=== PATIENT | male | born 1980 | race Caucasian/White ===

== ENCOUNTER → 2018-01-02 | Outpatient (CLI) | payer OTHER ==
[~2018-01-02] MED LIST: OXYC1TAB3 PO; PROM25TA PO
== END | disposition home or self-care (01) ==
LOC: C.LAB 08:12
PROVIDERS: ATTEND Physician Assistant
DX: Z31.9 Encounter for procreative management, unspecified (principal)

== ENCOUNTER 2022-06-27 17:07 | Inpatient (IN) ==
--- NOTE | 2022-06-27 17:34 | ED Triage Note ---
Date of Service June 27, 2022 History of Present Illness This patient was briefly evaluated while in triage. An abbreviated physical exam was performed. This patient is a 41-year-old Male with left flank pain. It started around 6pm in the evening yesterday. Vague pain initially. Came here around 11pm. Had a CT scan. 7mm stone. Physical Exam GENERAL: 41 year old female. In no acute distress. SKIN: No lesions or rashes. HEART: Regular rate and rhythm. LUNGS: Clear to auscultation. ABDOMEN: Bowel sounds normoactive. NEURO: Alert and oriented. No deficits. MUSCULOSKELETAL: No deformities to inspection of the extremities. PSYCH: Patient is pleasant and answers all questions appropriately. Initial orders for labs and / or imaging were placed and patient was placed in the waiting area until a bed is available. Please see further documentation for the full ED course.
[2022-06-27] MEDS ORDERED: KETOROLAC TROMETHAMINE 15 MG/ML VIAL IV STA (17:35)
[2022-06-27] MEDS ORDERED: ONDANSETRON INJ 2 MG/ML 2 ML VIAL IV STA (17:35)
[2022-06-27] MEDS ORDERED: HYDROmorphone INJ 1 MG/ML SYRINGE IV STA (18:11)
[2022-06-27] MEDS ORDERED: SODIUM CHLORIDE 0.9% 1000ML 1,000 ML IV SCH (18:15)
--- NOTE | 2022-06-27 18:17 | Emergency Department Note ---
History of Present Illness General Chief complaint: Kidney Stone Stated complaint: 7MM KIDNEY STONE, SEVERE PAIN Time Seen by Provider: 06/27/22 17:55 History of Present Illness Maximum Pain Intensity: 8 This is a 41-year-old male that presents to the emergency department via private vehicle accompanied by with complaints of "left flank pain, recent kidney stone diagnosis". Pain started around 6pm in the evening yesterday. Vague pain initially. Came here around 11pm last night and underwent CT imaging of the abd/pelvis. Obstructing ureteral calculus noted on the left. Patient notes this was 7 mm in size. He went home and has had vomiting/dry heaves and cannot control the pain with the prescribed pain medication oxycodone. No fevers or dysuria. Home Medications Medication Instructions Recorded Confirmed Type epinephrine 0.3 mg/0.3 mL 0.3 mg IM UD PRN Allergic Reaction 06/27/22 06/27/22 History injection, auto-injector ondansetron 4 mg disintegrating 4 mg PO Q6H PRN nausea and 06/27/22 06/27/22 Rx tablet vomiting #12 tabs oxycodone 5 mg tablet 5 mg PO Q4H PRN pain #12 tabs 06/27/22 06/27/22 Rx tamsulosin 0.4 mg capsule (Flomax) 0.4 mg PO DAILY #14 caps 06/27/22 06/27/22 Rx Allergies Allergy/AdvReac Type Severity Reaction Status Date / Time bee venom protein (honey bee) Allergy Severe Swelling Verified 06/27/22 19:24 of Lip/Tongue/Throat Past Med/Surg History Medical History No pertinent past medical history Family History (Updated 10/05/19 @ 10:29 by Payton Dunlap RN) Family/Other Hypertension Social History Smoking Status: Never smoker Hx Alcohol Use: Yes Hx Substance Use: Yes Preferred Language: Kazakh Communication Ability: Effective Airline Operations Agent Required: No Beliefs That Will Affect Care: None marital status: Current Living Situation: Spouse current occupational status: employed Other Information That Helps Us Care for You: No Feels Safe at Home: Yes Safety Concerns: Feels Safe At This Time Assistive Devices: Contacts Review of Systems A total of 10 systems reviewed and were otherwise negative Physical Exam Vital Signs Vital Signs - 24 hr 06/27/22 17:32 06/27/22 18:28 06/27/22 19:28 Temperature 36.6 C Temperature Source Temporal Artery Scan Pulse Rate 75 Pulse Rate [Right Finger] 84 83 Respiratory Rate 18 16 16 Blood Pressure 149/87 H Blood Pressure [Right Arm] 139/85 125/71 Blood Pressure Mean 107 Blood Pressure Mean [Right Arm] 103 89 Pulse Oximetry 98 98 96 Oxygen Delivery Method Room Air Room Air Room Air Sepsis Recent Fever Within 48 Hours No Sepsis New/Unexplained Change in Mental Status No Sepsis Action Taken by Nursing No Action Required VITAL SIGNS - Vital signs and nursing notes were reviewed. Stable and afebrile. GENERAL -41-year-old male appearing his stated age who is in no acute distress but appears to be in pain and is holding his left flank region with his hands. Communicates well with provider and answers questions appropriately. SKIN - Without rashes. No meningeal or petechial rash. HEAD - NC/AT. EYES - Sclera anicteric. LUNGS - Chest wall symmetric without accessory muscle use, intercostals retractions, or central cyanosis. Normal vesicular breath sounds CTA B/L. No wheezes, rales, or rhonchi appreciated. CARDIAC - RRR with S1/S2. No murmur, rubs, or gallops appreciated. ABDOMEN - Abdominal contour normal without pulsations or visible masses. BS normoactive all four quadrants. No tenderness, palpable masses, hepatosplenomegaly, or ascites noted. PSYCH - A&Ox3 and cooperates fully with examiner. Pt is very pleasant and interacts well with examiner. Course Administered Medications Multivitamins 10 ml/ Thiamine HCl 100 mg/ Folic Acid 1 mg/Sodium Chloride 1,011.2 mls @ 200 mls/hr IV .Q5H4M ONE Stop: 06/28/22 01:18 Last Admin: 06/27/22 21:35 Dose: 200 mls/hr Documented By: SHELIA Morphine Sulfate (Morphine Sulfate 4 Mg/Ml 1 Ml Carp\\Vial) 4 mg IV Q4H PRN PRN Reason: Pain Stop: 07/11/22 19:28 Last Admin: 06/27/22 21:40 Dose: 4 mg Documented By: SHELIA Discontinued Medications Hydromorphone HCl (Hydromorphone Inj 1 Mg/Ml Syringe) 1 mg IV NOW STA Stop: 06/27/22 18:12 Last Admin: 06/27/22 18:28 Dose: 1 mg Documented By: ASW Sodium Chloride (Nss 1000ml) 1,000 mls @ 999 mls/hr IV .Q1H1M ISABEL Stop: 06/27/22 19:15 Last Infusion: 06/27/22 19:23 Dose: 0 mls/hr Documented By: Admin: 06/27/22 18:28 Dose: 999 mls/hr Documented By: ASW Sodium Chloride (Nss 1000ml) 1,000 mls @ 100 mls/hr IV .Q10H ONE Stop: 06/28/22 05:28 Last Admin: 06/27/22 21:31 Dose: Not Given Documented By: SHELIA Ketorolac Tromethamine (Ketorolac Tromethamine 15 Mg/Ml Vial) 15 mg IV NOW STA Stop: 06/27/22 17:36 Last Admin: 06/27/22 18:18 Dose: 15 mg Documented By: EVELINEW Ondansetron HCl (Ondansetron Inj 2 Mg/Ml 2 Ml Vial) 4 mg IV NOW STA Stop: 06/27/22 17:36 Last Admin: 06/27/22 18:18 Dose: 4 mg Documented By: ALECIA Medical Decision Making Laboratory Data Result diagrams: 06/27/22 18:15 06/27/22 18:15 Lab Results 06/27/22 06/27/22 06/27/22 Range/Units 18:15 18:15 18:25 WBC 15.28 H (4.8-10.8) K/ul RBC 4.90 (4.63-6.08) M/uL Hgb 15.0 (14.0-18.0) g/dl Hct 42.2 (40.1-51.0) % MCV 86.1 (80.0-100.0) fL MCH 30.6 (25.0-34.0) pg MCHC 35.5 (32.0-36.0) g/dL RDW Std Deviation 39.7 (36.4-46.3) fL RDW Coeff of Mikael 12.6 (11.5-14.5) % Plt Count 215 (130-400) K/uL MPV 11.6 (9.4-12.4) fL Immature Gran % (Auto) 0.5 % Neut % (Auto) 83.8 % Lymph % (Auto) 8.2 % [place] % (Auto) 6.5 % Eos % (Auto) 0.7 % Baso % (Auto) 0.3 % Neut # (Auto) 12.79 H (1.4-6.5) K/uL Lymph # (Auto) 1.26 (1.2-3.4) K/uL [place] # (Auto) 1.00 H (0.24-0.82) K/uL Eos # (Auto) 0.11 (0-0.50) K/uL Baso # (Auto) 0.05 (0-0.2) K/uL Immature Gran # (Auto) 0.07 H (0.00-0.02) K/uL Sodium 134 L (136-145) mmol/L Potassium 4.3 (3.5-5.1) mmol/L Chloride 104 (98-107) mmol/L Carbon Dioxide 20 L (21-32) mmol/L Anion Gap 10 (3-11) BUN 11 (6-23) mg/dl Creatinine 1.01 (0.6-1.4) mg/dl Est Cr Clr Drug Dosing 123.1 ml/min Est GFR ( Amer) 107.3 ml/min Est GFR (Non-Af Amer) 92.6 ml/min BUN/Creatinine Ratio 10.9 (10-20) Glucose 109 H (70-99(Fasting)) mg/dl Calcium 9.5 (8.5-10.1) mg/dl Total Bilirubin 0.7 (0.2-1.0) mg/dl AST 51 H (13-39) U/L ALT 46 (7-52) U/L Alkaline Phosphatase 83 (34-104) U/L Total Protein 7.5 (6.0-8.3) gm/dl Albumin 4.2 (3.4-5.0) gm/dl Globulin 3.3 (2.5-4.0) gm/dl Albumin/Globulin Ratio 1.3 (0.9-2) Urine Color Yellow Urine Appearance Clear (Clear) Urine pH 6.0 (4.5-7.5) Ur Specific [place] 1.009 (1.000-1.030) Urine Protein Trace H (Negative) Urine Glucose (UA) Negative (Negative) Urine Ketones Negative (Negative) Urine Blood 3+ H (Negative) Urine Nitrite Negative (Negative) Urine Bilirubin Negative (Negative) Urine Urobilinogen Negative (Negative) Ur Leukocyte Esterase Trace H (Negative) Urine WBC (Auto) 1-5 (0-5) /hpf Urine RBC (Auto) >30 H (0-4) /hpf U Hyaline Cast (Auto) 1-5 (0-5) /lpf U Epithel Cells (Auto) 0-5 (0-5) /lpf Urine Bacteria (Auto) Negative (Negative) SARS-CoV-2, RNA, NAAT (NEGATIVE) 06/27/22 Range/Units 19:01 WBC (4.8-10.8) K/ul RBC (4.63-6.08) M/uL Hgb (14.0-18.0) g/dl Hct (40.1-51.0) % MCV (80.0-100.0) fL MCH (25.0-34.0) pg MCHC (32.0-36.0) g/dL RDW Std Deviation (36.4-46.3) fL RDW Coeff of Mikael (11.5-14.5) % Plt Count (130-400) K/uL MPV (9.4-12.4) fL Immature Gran % (Auto) % Neut % (Auto) % Lymph % (Auto) % [place] % (Auto) % Eos % (Auto) % Baso % (Auto) % Neut # (Auto) (1.4-6.5) K/uL Lymph # (Auto) (1.2-3.4) K/uL [place] # (Auto) (0.24-0.82) K/uL Eos # (Auto) (0-0.50) K/uL Baso # (Auto) (0-0.2) K/uL Immature Gran # (Auto) (0.00-0.02) K/uL Sodium (136-145) mmol/L Potassium (3.5-5.1) mmol/L Chloride (98-107) mmol/L Carbon Dioxide (21-32) mmol/L Anion Gap (3-11) BUN (6-23) mg/dl Creatinine (0.6-1.4) mg/dl Est Cr Clr Drug Dosing ml/min Est GFR ( Amer) ml/min Est GFR (Non-Af Amer) ml/min BUN/Creatinine Ratio (10-20) Glucose (70-99(Fasting)) mg/dl Calcium (8.5-10.1) mg/dl Total Bilirubin (0.2-1.0) mg/dl AST (13-39) U/L ALT (7-52) U/L Alkaline Phosphatase (34-104) U/L Total Protein (6.0-8.3) gm/dl Albumin (3.4-5.0) gm/dl Globulin (2.5-4.0) gm/dl Albumin/Globulin Ratio (0.9-2) Urine Color Urine Appearance (Clear) Urine pH (4.5-7.5) Ur Specific [place] (1.000-1.030) Urine Protein (Negative) Urine Glucose (UA) (Negative) Urine Ketones (Negative) Urine Blood (Negative) Urine Nitrite (Negative) Urine Bilirubin (Negative) Urine Urobilinogen (Negative) Ur Leukocyte Esterase (Negative) Urine WBC (Auto) (0-5) /hpf Urine RBC (Auto) (0-4) /hpf U Hyaline Cast (Auto) (0-5) /lpf U Epithel Cells (Auto) (0-5) /lpf Urine Bacteria (Auto) (Negative) SARS-CoV-2, RNA, NAAT NEGATIVE (NEGATIVE) MDM Narrative Patient was seen and evaluated as above in room C05. Review was performed of nursing notes and vital signs. I did review pertinent previous visits and patient history. After obtaining a thorough history and physical examination the above work up was performed. Patient presents to us today for evaluation of ongoing left flank pain with known ureteral calculus that is obstructing and was diagnosed yesterday/overnight here in the ED. CT imagin mm proximal left ureteral calculus results in mild left hydronephrosis. Options of care were discussed with the patient. Patient presents during a period of high volume and acuity. IV access was established. Labs were drawn. He was medicated with IV Toradol, IV Zofran, IV fluids, IV Dilaudid. At this point with the patient having ongoing symptoms despite appropriate prescription pain medication in the outpatient setting, I do believe that further evaluation and management in inpatient setting is warranted. I discussed the case with urology as well as the hospitalist service. Please refer to further documentation regarding his stay. Labs reveal leukocytosis 15.28 which has increased since previous draw. No anemia. No emergent metabolic disturbance. No evidence of kidney failure. AST mildly elevated but similar to previous. Urinalysis does not suggest infection. COVID test negative. 1851: Spoke with Dr. Britt of urology. Patient will be made n.p.o. after midnight for potential surgical intervention tomorrow if the need would arise. 1920: I spoke with Dr. Gallo with the [facility] hospitalist service. Patient will be admitted for further evaluation and management. GCS: 15 In the evaluation and treatment of this patient the following differential diagnoses were entertained: UTI, pyelonephritis, hydronephrosis, bowel obstruction, ИВАН, among others. Impression & Plan Calculus of left ureter, Hydronephrosis, Acute left flank pain Discharge Plan Visit Data Chief Complaint: Kidney Stone Stated Complaint: 7MM KIDNEY STONE, SEVERE PAIN ED Provider: Andrea Rincon ED Midlevel Provider: Иван Franco Discharge Problem: Calculus of left ureter, Hydronephrosis, Acute left flank pain Patient Disposition: Admitted As Inpatient Condition: Good Discharge Instructions Interventions: ED Discharge Assessment Last Done: 06/27/22 20:48
[2022-06-27 18:31] LABS: Basophils # (auto) 0.05 K/uL (0-0.2); Basophils % (auto) 0.3 %; Eosinophils # (auto) 0.11 K/uL (0-0.50); Eosinophils % (auto) 0.7 %; Hematocrit (blood only) 42.2 % (40.1-51.0); Immature Granulocytes # (auto) 0.07 K/uL (0.00-0.02); Immature Granulocytes % (auto) 0.5 %; Lymphocytes # (auto) 1.26 K/uL (1.2-3.4); Lymphocytes % (auto) 8.2 %; Mean Corpuscular Hemoglobin 30.6 pg (25.0-34.0); Mean Corpuscular Hgb Conc 35.5 g/dL (32.0-36.0); Mean Corpuscular Volume 86.1 fL (80.0-100.0); Mean Platelet Volume 11.6 fL (9.4-12.4); Monocytes % (auto) 6.5 %; Neutrophils # (auto) 12.79 K/uL (1.4-6.5); Neutrophils % (auto) 83.8 %; Platelet Count 215 K/uL (130-400); RDW Coefficient of Variation 12.6 % (11.5-14.5); RDW Standard Deviation 39.7 fL (36.4-46.3); White Blood Count 15.28 K/ul (4.8-10.8)
[2022-06-27 18:51] LABS: Albumin Globulin Ratio 1.3 (0.9-2); Albumin Level 4.2 gm/dl (3.4-5.0); BUN Creatinine Ratio 10.9 (10-20); Bilirubin,Total 0.7 mg/dl (0.2-1.0); Calcium 9.5 mg/dl (8.5-10.1); Creatinine Clr Calc Pharmacy 123.1 ml/min; Est GFR (African American) 107.3 ml/min; Est GFR (Non-African American) 92.6 ml/min; Globulin 3.3 gm/dl (2.5-4.0); Potassium 4.3 mmol/L (3.5-5.1); Total Protein 7.5 gm/dl (6.0-8.3)
[2022-06-27] MEDS ORDERED: PROMETHAZINE HCL 12.5 MG in SODIUM CHLORIDE 0.9% 50 ML IV PRN (19:29)
[2022-06-27] MEDS ORDERED: ACETAMINOPHEN 500 MG TAB PO PRN (19:29)
[2022-06-27] MEDS ORDERED: SODIUM CHLORIDE 0.9% 1000ML 1,000 ML IV ONE (19:29)
--- NOTE | 2022-06-27 19:59 | History & Physical Report ---
Date of Service June 27, 2022 Assessment & Plan (1) Obstructive uropathy: Plan: Secondary to recurrent urolithiasis No sepsis for now Possible alcohol abuse Possible alcoholic hepatitis, good prognosis Madrey's DF score given normal total bilirubin levels. Occasional tobacco abuse GMF Analgesia, IVF Flomax Strain urine Urology consult Re: Obstructive uropathy (ER provider already in touch with Dr. Britt who recommends N.p.o. after midnight in anticipation of procedural intervention if stone does not pass spontaneously.) DT precautions, initiate AWSS protocol if with signs of alcohol withdrawal DVT prophylaxis per Lovenox subcu Full code Text document was generated using [employer] voice recognition software. It may contain grammatical or spelling errors. Kindly contact undersigned for clarification of any documentation item in question. History of Present Illness Chief Complaint: Kidney stone pain Primary Care Provider: [place] Hidalgo MD History obtained from patient and records. Medical history significant for urolithiasis, intermittent tobacco abuse. Last night, patient experienced achy left-sided flank pain reminiscent of kidney stone pain. No fever, no chills. Patient had nausea and emesis symptoms from pain. No gross hematuria. Patient seen at the ER early a.m. today. CT abdomen pelvis showed 6 mm proximal left ureteral calculus results in mild left hydronephrosis. Patient discharged home. Oxy IR and Flomax prescriptions. Instructed to follow-up with urologist outpatient. Intractable discomfort at home. Patient returned to ER. 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 Allergies Allergy/AdvReac Type Severity Reaction Status Date / Time bee venom protein (honey bee) Allergy Severe Swelling Verified 06/27/22 19:24 of Lip/Tongue/Throat Home Medications Medication Instructions Recorded Confirmed Type epinephrine 0.3 mg/0.3 mL 0.3 mg IM UD PRN Allergic Reaction 06/27/22 06/27/22 History injection, auto-injector ondansetron 4 mg disintegrating 4 mg PO Q6H PRN nausea and 06/27/22 06/27/22 Rx tablet vomiting #12 tabs oxycodone 5 mg tablet 5 mg PO Q4H PRN pain #12 tabs 06/27/22 06/27/22 Rx tamsulosin 0.4 mg capsule (Flomax) 0.4 mg PO DAILY #14 caps 06/27/22 06/27/22 Rx Past Med/Surg History Medical History No pertinent past medical history Family History (Updated 10/05/19 @ 10:29 by Payton Dunlap RN) Family/Other Hypertension Social History Smoking Status: Never smoker Hx Alcohol Use: Yes Preferred Language: Swedish marital status: current occupational status: employed Feels Safe at Home: Yes Review of Systems Review of Systems: As per HPI, all other systems reviewed and negative Physical Exam Physical Exam: GENERAL: Comfortable, pleasant, obese, no respiratory distress SKIN: Normal color, warm HEENT: [place] palpebral conjunctivae, no ptosis, dry buccal mucosa NECK : Supple, no tenderness CHEST : CTA, no tenderness HEART : RRR, no obvious murmurs ABDOMEN: Some distention, nontender BACK : Minimal left flank tenderness EXTREMITIES : No LE swelling/tenderness, no other conspicuous deformities noted NEUROLOGIC : Coherent, no facial asymmetry, no other gross focality Results & Data Results & Data ([facility]) Vital Signs (Past 12 Hours) Vital Signs Temp Pulse Pulse Resp BP BP Pulse Ox 06/27/22 19:28 83 16 125/71 96 06/27/22 18:28 84 16 139/85 98 06/27/22 17:32 36.6 C 75 18 149/87 H 98 O2 Del Method 06/27/22 19:28 Room Air 06/27/22 18:28 Room Air 06/27/22 17:32 Room Air Laboratory Results Laboratory Results WBC 15.28 K/ul (4.8-10.8) H 06/27/22 18:15 RBC 4.90 M/uL (4.63-6.08) 06/27/22 18:15 Hgb 15.0 g/dl (14.0-18.0) 06/27/22 18:15 Hct 42.2 % (40.1-51.0) 06/27/22 18:15 MCV 86.1 fL (80.0-100.0) 06/27/22 18:15 MCH 30.6 pg (25.0-34.0) 06/27/22 18:15 MCHC 35.5 g/dL (32.0-36.0) 06/27/22 18:15 RDW Std Deviation 39.7 fL (36.4-46.3) 06/27/22 18:15 RDW Coeff of Mikael 12.6 % (11.5-14.5) 06/27/22 18:15 Plt Count 215 K/uL (130-400) 06/27/22 18:15 MPV 11.6 fL (9.4-12.4) 06/27/22 18:15 Immature Gran % (Auto) 0.5 % 06/27/22 18:15 Neut % (Auto) 83.8 % 06/27/22 18:15 Lymph % (Auto) 8.2 % 06/27/22 18:15 [place] % (Auto) 6.5 % 06/27/22 18:15 Eos % (Auto) 0.7 % 06/27/22 18:15 Baso % (Auto) 0.3 % 06/27/22 18:15 Neut # (Auto) 12.79 K/uL (1.4-6.5) H 06/27/22 18:15 Lymph # (Auto) 1.26 K/uL (1.2-3.4) 06/27/22 18:15 [place] # (Auto) 1.00 K/uL (0.24-0.82) H 06/27/22 18:15 Eos # (Auto) 0.11 K/uL (0-0.50) 06/27/22 18:15 Baso # (Auto) 0.05 K/uL (0-0.2) 06/27/22 18:15 Immature Gran # (Auto) 0.07 K/uL (0.00-0.02) H 06/27/22 18:15 Sodium 134 mmol/L (136-145) L 06/27/22 18:15 Potassium 4.3 mmol/L (3.5-5.1) 06/27/22 18:15 Chloride 104 mmol/L (98-107) 06/27/22 18:15 Carbon Dioxide 20 mmol/L (21-32) L 06/27/22 18:15 Anion Gap 10 (3-11) 06/27/22 18:15 BUN 11 mg/dl (6-23) 06/27/22 18:15 Creatinine 1.01 mg/dl (0.6-1.4) 06/27/22 18:15 Est Cr Clr Drug Dosing 123.1 ml/min 06/27/22 18:15 Est GFR ( Amer) 107.3 ml/min 06/27/22 18:15 Est GFR (Non-Af Amer) 92.6 ml/min 06/27/22 18:15 BUN/Creatinine Ratio 10.9 (10-20) 06/27/22 18:15 Glucose 109 mg/dl (70-99(Fasting)) H 06/27/22 18:15 Calcium 9.5 mg/dl (8.5-10.1) 06/27/22 18:15 Total Bilirubin 0.7 mg/dl (0.2-1.0) 06/27/22 18:15 AST 51 U/L (13-39) H 06/27/22 18:15 ALT 46 U/L (7-52) 06/27/22 18:15 Alkaline Phosphatase 83 U/L (34-104) 06/27/22 18:15 Total Protein 7.5 gm/dl (6.0-8.3) 06/27/22 18:15 Albumin 4.2 gm/dl (3.4-5.0) 06/27/22 18:15 Globulin 3.3 gm/dl (2.5-4.0) 06/27/22 18:15 Albumin/Globulin Ratio 1.3 (0.9-2) 06/27/22 18:15 SARS-CoV-2, RNA, NAAT NEGATIVE (NEGATIVE) 06/27/22 19:01
[2022-06-27] MEDS ORDERED: MULTI-VITAMIN INFUSION 10 ML, THIAMINE HCL 100 MG, FOLIC ACID 1 MG in SODIUM CHLORIDE 0... IV ONE (20:15)
[2022-06-27 20:48] LABS: Appearance Urine Clear (Clear); Bacteria Urine Automated Negative (Negative); Bilirubin Urine Negative (Negative); Blood Urine 3+ (Negative); Color Urine Yellow; Epithelial Cell Urine Auto 0-5 /lpf (0-5); Glucose Urine UA Negative (Negative); Ketones Urine Negative (Negative); Leukocyte Esterase Urine Trace (Negative); Nitrite Urine Negative (Negative); Protein Urine Trace (Negative); RBC Urine Automated >30 /hpf (0-4); Specific Gravity Urine 1.009 (1.000-1.030); Urobilinogen Urine Negative (Negative)
[2022-06-27] MEDS ORDERED: LORazepam 0.5 MG in SYRINGE 0 ML IV PRN (21:30)
[2022-06-27] MEDS: MoRPHine SULFATE 4 MG/ML 1 ML CARP\\VIAL IV PRN (21:40)
[2022-06-28] MEDS: MoRPHine SULFATE 4 MG/ML 1 ML CARP\\VIAL IV PRN (02:46)
[2022-06-28] MEDS: SODIUM CHLORIDE 0.9% 1000ML 1,000 ML IV SCH ×2 (02:51→15:06)
[2022-06-28] MEDS: oxyCODONE HCL IR 5 MG TAB (IMMEDIATE RELEASE) PO PRN ×2 (04:57→09:20)
[2022-06-28] MEDS: HYDROmorphone INJ 1 MG/ML SYRINGE IV PRN ×2 (07:02→14:57)
--- NOTE | 2022-06-28 07:15 | Urology Consultation ---
Date of Consultation June 28, 2022 Assessment & Plan (1) Calculus of left ureter: Plan 41-year-old male with 6 mm left proximal ureteral calculus and intractable pain and nausea. Discussed options with patient. We will plan to go to the OR for cystoscopy, left retrograde pyelogram and left ureteral stent placement. Patient understands that we cannot treat stone at this time he will need a second procedure. Please keep patient NPO. Anticipate procedure will be this afternoon. History of Present Illness Reason for Consultation: 6 mm left proximal ureteral calculus Attending Physician: Katie Mcintosh MD History of Present Illness 41-year-old male with a 6 mm left proximal ureteral calculus who is presenting to the emergency department twice in the past [address] scan which shows above-noted stone with mild hydronephrosis. Patient has been afebrile with stable vitals. White count 15.2, creatinine 1.01, urinalysis had microscopic hematuria and trace leukocyte Esterase. Due to intractable pain and nausea, patient was admitted and would prefer stent. Allergies Allergy/AdvReac Type Severity Reaction Status Date / Time bee venom protein (honey bee) Allergy Severe Swelling Verified 06/27/22 19:24 of Lip/Tongue/Throat Home Medications Medication Instructions Recorded Confirmed Type epinephrine 0.3 mg/0.3 mL 0.3 mg IM UD PRN Allergic Reaction 06/27/22 06/27/22 History injection, auto-injector ondansetron 4 mg disintegrating 4 mg PO Q6H PRN nausea and 06/27/22 06/27/22 Rx tablet vomiting #12 tabs oxycodone 5 mg tablet 5 mg PO Q4H PRN pain #12 tabs 06/27/22 06/27/22 Rx tamsulosin 0.4 mg capsule (Flomax) 0.4 mg PO DAILY #14 caps 06/27/22 06/27/22 Rx Patient History Medical History No pertinent past medical history Family History (Updated 10/05/19 @ 10:29 by Payton Dunlap RN) Family/Other Hypertension Social History Smoking Status: Never smoker Hx Alcohol Use: Yes Hx Substance Use: Yes Preferred Language: Citizen [place] Communication Ability: 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 Beliefs That Will Affect Care: None marital status: Current Living Situation: Spouse current occupational status: employed Other Information That Helps Us Care for You: No Feels Safe at Home: Yes Safety Concerns: Feels Safe At This Time Assistive Devices: Contacts Review of Systems Review of Systems: 14 point review of systems negative outside of what is listed above in HPI Physical Exam Physical Exam: General: Alert and oriented, no acute distress HEENT: Normocephalic, mucous membranes moist Pulmonary: Nonlabored respirations Abdomen: Nondistended Extremities: Moves all 4 spontaneously Neuro: No gross deficits Skin: Warm, dry, no rashes noted Results & Data ([facility]) Vital Signs (Past 12 Hours) Vital Signs Temp Pulse Pulse Resp BP BP Pulse Ox 06/27/22 21:20 36.6 C 75 18 128/66 96 06/27/22 20:48 73 16 136/73 94 06/27/22 19:28 83 16 125/71 96 O2 Del Method 06/27/22 21:20 Room Air 06/27/22 20:48 Room Air 06/27/22 19:28 Room Air PG Care Time/CCT Total # of Minutes Spent Total Time Spent with Patient: Total time spent is greater than 50% in coordination of care (as documented) at patient's floor/unit and/or counseling patient: Coding Level of Care Code 85177 Inpt Consult Level 4 Diagnoses Calculus of left ureter N20.1
[2022-06-28 07:47] LABS: Basophils # (auto) 0.05 K/uL (0-0.2); Basophils % (auto) 0.5 %; Eosinophils # (auto) 0.34 K/uL (0-0.50); Eosinophils % (auto) 3.1 %; Hematocrit (blood only) 39.2 % (40.1-51.0); Hemoglobin 13.3 g/dl (14.0-18.0); Immature Granulocytes # (auto) 0.03 K/uL (0.00-0.02); Immature Granulocytes % (auto) 0.3 %; Lymphocytes # (auto) 2.65 K/uL (1.2-3.4); Lymphocytes % (auto) 24.1 %; Mean Corpuscular Hemoglobin 30.4 pg (25.0-34.0); Mean Corpuscular Hgb Conc 33.9 g/dL (32.0-36.0); Mean Corpuscular Volume 89.5 fL (80.0-100.0); Mean Platelet Volume 11.7 fL (9.4-12.4); Monocytes # (auto) 1.11 K/uL (0.24-0.82); Monocytes % (auto) 10.1 %; Neutrophils # (auto) 6.81 K/uL (1.4-6.5); Neutrophils % (auto) 61.9 %; Platelet Count 196 K/uL (130-400); RDW Coefficient of Variation 12.9 % (11.5-14.5); RDW Standard Deviation 42.3 fL (36.4-46.3); Red Blood Count 4.38 M/uL (4.63-6.08); White Blood Count 10.99 K/ul (4.8-10.8)
[2022-06-28 07:56] LABS: Prothrombin Time 10.6 Seconds (9.0-12.0)
[2022-06-28 08:09] LABS: Albumin Globulin Ratio 1.4 (0.9-2); Albumin Level 3.6 gm/dl (3.4-5.0); BUN Creatinine Ratio 10.2 (10-20); Bilirubin,Total 0.6 mg/dl (0.2-1.0); Calcium 8.3 mg/dl (8.5-10.1); Creatinine Clr Calc Pharmacy 127.5 ml/min; Est GFR (African American) 111.3 ml/min; Est GFR (Non-African American) 96.1 ml/min; Globulin 2.6 gm/dl (2.5-4.0); Potassium 3.9 mmol/L (3.5-5.1); Total Protein 6.2 gm/dl (6.0-8.3)
[2022-06-28] MEDS ORDERED: MULTIVITAMIN TAB PO SCH (09:00)
[2022-06-28] MEDS ORDERED: TAMSULOSIN HCL 0.4 MG CAP PO SCH (09:00)
[2022-06-28] MEDS ORDERED: FOLIC ACID 1 MG TAB PO SCH (09:00)
[2022-06-28] MEDS ORDERED: THIAMINE HCL 100 MG TAB PO SCH (09:00)
[2022-06-28] MEDS ORDERED: ENOXAPARIN INJ 40 MG/0.4 ML SYR SQ SCH (09:00)
[2022-06-28] MEDS ORDERED: KETOROLAC TROMETHAMINE 15 MG/ML VIAL IV ONE (10:11)
--- NOTE | 2022-06-28 11:30 | Hospitalist Progress Note ---
Date of Service June 28, 2022 Assessment & Plan (1) Calculus of left ureter: Plan: Present on admission with worsening left-sided flank pain associated with nausea CT abd/pelvis showed 6 mm proximal left ureteral calculus results in mild left hydronephrosis. Continue pain control Urology on board Plan for for cystoscopy, left retrograde pyelogram and left ureteral stent placement. Keep NPO for now DVT px SCDs Code status full code Admission and Anticipated Discharge Date Admission Date: June 27, 2022 Subjective Pt was seen and examined for follow up of renal stone Lying in bed with no acute distress Pt said that he is having alot of pain Pt said that the oxycodone does not help with the pain He said that dilaudid and Toradol IV helped Denies any chest pain, palpitation, dizziness and SOB Review of Systems Review of Systems: All systems reviewed & are unremarkable except as noted in Subjective Physical Exam Physical Exam: General- No acute distress Head- atraumatic Eyes- PERRL, EOMI, ENT- oropharynx clear Neck- supple, no JVD Lungs- clear to auscultation Heart- regular rhythm; no murmur Abdomen- normal bowel sounds, soft, nontender Extremities- no calf tenderness Neuro- alert, oriented x 3; PERRL, EOMI; no facial palsy; no dysarthria Skin- warm & dry Results & Data Results & Data ([facility]) Vital Signs (Past 12 Hours) Vital Signs Temp Pulse Resp BP Pulse Ox O2 Del Method 06/28/22 08:31 36.8 C 81 18 126/70 94 Room Air
[2022-06-28] MEDS ORDERED: LIDOCAINE 2% 2 ML VIAL/AMP(20MG/ML) INFIL ONE (11:51)
[2022-06-28] MEDS ORDERED: fentaNYL citrate 100 MCG/2 ML VIAL ONE ×2 (11:51→12:32)
[2022-06-28] MEDS ORDERED: PROPOFOL IV EMULSION 10 MG/ML 20 ML VIAL IV ONE ×2 (11:51→13:25)
[2022-06-28] MEDS ORDERED: DEXAMETHASONE SOD INJ 4 MG/ML VIAL ONE (11:51)
[2022-06-28] MEDS ORDERED: MIDAZOLAM HCL 1 MG/ML 2ML VIAL ONE ×2 (11:51→12:32)
[2022-06-28] MEDS ORDERED: ONDANSETRON INJ 2 MG/ML 2 ML VIAL ONE ×2 (11:51→13:25)
[2022-06-28] MEDS ORDERED: ATROPINE SULFATE 0.1 MG/ML 10ML SYR IV PRN (12:44)
[2022-06-28] MEDS ORDERED: fentaNYL citrate 100 MCG/2 ML VIAL IV PRN (12:44)
[2022-06-28] MEDS ORDERED: HYDROmorphone INJ 2 MG/ML SYR/VIAL IV PRN (12:44)
[2022-06-28] MEDS ORDERED: ONDANSETRON INJ 2 MG/ML 2 ML VIAL IV PRN (12:44)
[2022-06-28] MEDS ORDERED: ePHEDrine sulfate 50 MG/ML AMP IV PRN (12:44)
--- NOTE | 2022-06-28 12:44 | Anesthesiology Consultation ---
Date of Service June 28, 2022 Assessment & Plan ASA ASA2 Proposed Anesthesia Anesthesia Type: General Risk / Benefits Reviewed With: PT / POA / Parent / Guardian, Accepts Plan and Informed Consent Obtained History Surgery Operation Date: 06/28/22 07:00 Proposed Procedures p Cystoscopy, Left Retrograde Pyelogram, Left Stent Insertion - Maycol Britt MD Height/Weight Height: 5 ft 11 in Weight: 112 kg Allergies Allergy/AdvReac Type Severity Reaction Status Date / Time bee venom protein (honey bee) Allergy Severe Swelling Verified 06/27/22 19:24 of Lip/Tongue/Throat Medications Home Medications Medication Instructions Recorded Confirmed Last Taken epinephrine 0.3 mg/0.3 mL 0.3 mg IM UD PRN Allergic Reaction 06/27/22 06/27/22 Unknown injection, auto-injector ondansetron 4 mg disintegrating 4 mg PO Q6H PRN nausea and 06/27/22 06/27/22 Unknown tablet vomiting #12 tabs oxycodone 5 mg tablet 5 mg PO Q4H PRN pain #12 tabs 06/27/22 06/27/22 Unknown tamsulosin 0.4 mg capsule (Flomax) 0.4 mg PO DAILY #14 caps 06/27/22 06/27/22 Unknown Active Medications Generic Name Dose Route Start Last Admin Trade Name Freq PRN Reason Stop Dose Admin Enoxaparin Sodium 40 mg 06/28/22 09:00 06/28/22 09:11 Enoxaparin Inj 40 Mg/0.4 Ml Syr SQ 07/28/22 08:59 Not Given QAM ISABEL Folic Acid 1 mg 06/28/22 09:00 06/28/22 09:11 Folic Acid 1 Mg Tab PO 07/28/22 08:59 1 mg QAM ISABEL Administration Hydromorphone HCl 1 mg 06/28/22 05:32 06/28/22 07:02 Hydromorphone Inj 1 Mg/Ml Syringe IV 07/12/22 05:31 1 mg Q4H PRN Administration Pain Promethazine HCl 12.5 mg/ 50.5 mls @ 202 mls/hr 06/27/22 19:29 06/28/22 05:40 Sodium Chloride IV 07/27/22 19:28 Infused Q6H PRN Infusion Nausea And Vomiting Sodium Chloride 1,000 mls @ 100 mls/hr 06/28/22 03:00 06/28/22 12:41 Nss 1000ml IV 07/28/22 02:59 0 mls/hr .Q10H ISABEL Infusion Multivitamins 1 tab 06/28/22 09:00 06/28/22 09:11 Multivitamin Tab PO 07/28/22 08:59 1 tab QAM ISABEL Administration Oxycodone HCl 5 - 10 mg 06/27/22 19:29 06/28/22 09:20 Oxycodone Hcl Ir 5 Mg Tab (Immediate Release) PO 07/11/22 19:28 10 mg QID PRN Administration Pain Tamsulosin HCl 0.4 mg 06/28/22 09:00 06/28/22 09:11 Tamsulosin Hcl 0.4 Mg Cap PO 07/28/22 08:59 0.4 mg DAILY ISABEL Administration Thiamine HCl 100 mg 06/28/22 09:00 06/28/22 09:11 Thiamine Hcl 100 Mg Tab PO 07/28/22 08:59 100 mg QAM ISABEL Administration NPO Date Last Intake of Fluids: 06/27/22 Time Last Intake of Fluids: 23:00 Date Last Intake of Solids: 06/27/22 Time Last Intake of Solids: 20:00 Past Medical History Medical History No pertinent past medical history Exercise / Class Metabolic Activity II 4-5 Yardwork/Stairs/Walk up hill Past Family History Family History Family/Other Hypertension Past Anesthesia History No Hx of Anesthesia Complications and No Family Hx of Anesthesia Complications History of PONV No Hx of PONV and No Hx of Motion Sickness Social History Smoking Status: Never smoker Hx Alcohol Use: Yes alcohol intake frequency: a few times a week Hx Substance Use: Yes substance use type: marijuana Review of Systems denies fever/cough/ colds/ chest pain/ SOB/ ALICE denies ALICE Physical Exam Vital Signs Last Vital Signs Temp 36.7 C 06/28/22 12:31 Pulse 73 06/28/22 12:31 Resp 18 06/28/22 12:31 BP 130/82 06/28/22 12:31 Pulse Ox 96 06/28/22 12:31 O2 Del Method 06/28/22 12:31 ENMT Mouth: no TMJ abnormality and no dentition abnormality Thyromental Distance: > or= 3.5 Finger Breadths Mallampati Class: II Neck neck extension not limited Respiratory normal respiratory effort; no respiratory distress Auscultation: lungs clear to auscultation bilaterally Cardiovascular Rate/Rhythm: regular rate and regular rhythm Neurologic moves all extremities Psychiatric Orientation: alert and oriented x 3 Testing Laboratory Results 06/28/22 07:16 06/28/22 07:16 PT 10.6 Seconds (9.0-12.0) 06/28/22 07:16 INR 1.0 (0.9-1.1) 06/28/22 07:16 Urine Color Yellow 06/27/22 18:25 Urine Appearance Clear (Clear) 06/27/22 18: Urine pH 6.0 (4.5-7.5) 06/27/22 18:25 Ur Specific [place] 1.009 (1.000-1.030) 06/27/22 18:25 Urine Protein Trace (Negative) H 06/27/22 18:25 Urine Glucose (UA) Negative (Negative) 06/27/22 18:25 Urine Ketones Negative (Negative) 06/27/22 18:25 Urine Nitrite Negative (Negative) 06/27/22 18:25 Ur Leukocyte Esterase Trace (Negative) H 06/27/22 18:25 Urine WBC (Auto) 1-5 /hpf (0-5) 06/27/22 18:25 Urine RBC (Auto) >30 /hpf (0-4) H 06/27/22 18:25 U Hyaline Cast (Auto) 1-5 /lpf (0-5) 06/27/22 18:25 U Epithel Cells (Auto) 0-5 /lpf (0-5) 06/27/22 18:25 Urine Bacteria (Auto) Negative (Negative) 06/27/22 18:25
[2022-06-28] MEDS ORDERED: LIDOCAINE 2% 20 MG/ML 5 ML SYR IV ONE (13:25)
[2022-06-28] MEDS ORDERED: LIDOCAINE 2% MPF LOCAL 5 ML VIAL INFIL ONE (13:25)
[2022-06-28] MEDS ORDERED: ceFAZolin 2000MG 2,000 MG/15 ML SYR IV ONE (13:26)
[2022-06-28] MEDS ORDERED: DIATRIZOATE MEGLUMINE 30% 100ML VIAL INSTIL ONE (13:27)
--- NOTE | 2022-06-28 13:31 | Post Operative Brief Note ---
PG Immediate Post Op with CF Date of Surgery June 28, 2022 Pre & Post Diagnosis Operation Date: 06/28/22 07:00 Pre-Op Diagnosis: left ureteral calculus Post-Op Diagnosis: left ureteral calculus I identified the patient and participated in the time-out.: Yes Procedure Operation Date: 06/28/22 07:00 Actual Procedures p Cystoscopy, Left Retrograde Pyelogram, Left Stent Insertion(Left) - Maycol Britt MD Surgeon Maycol Britt MD Credit Balance Specialist None Estimated Blood Loss 5 Findings See Below Minimal left hydro on retrograde. Stent in appropriate position. Specimens Specimen Description: no specimen per surgeon Drains Other (6x26 L stent ) Complications none
--- NOTE | 2022-06-28 13:33 | Operative Report ---
PG Post Operative Report Pre & Post Diagnosis Operation Date: 06/28/22 07:00 Pre-Op Diagnosis: left ureteral calculus Post-Op Diagnosis: left ureteral calculus I identified the patient and participated in the time-out.: Yes Procedure Operation Date: 06/28/22 07:00 Actual Procedures p Cystoscopy, Left Retrograde Pyelogram with radiographic interpretation, Left Stent Insertion(Left) - Maycol Britt MD Surgeon Maycol Britt MD Senior Risk Analyst None Estimated Blood Loss 5 Findings See Below Minimal left hydronephrosis. Stent in appropriate position. Specimens None Drains 6 [place] by 26 mm left ureteral stent Complications none Indications 41-year-old male with a 6 mm left proximal ureteral calculus with intractable pain and nausea. Options discussed and patient opted for stent placement. Description of Procedure After informed consent was obtained, the patient was transported operative suite. MAC anesthesia was induced. The patient was placed in dorsal lithotomy position prepped and draped in a sterile fashion. They received preoperative Ancef for antibiotic prophylaxis. An appropriate surgical timeout was performed. A 22 [place] rigid scope was inserted per urethra into the bladder. [place] cystoscopy revealed no stones or lesions. I turned my attention the left ureteral orifice and intubated this with a 5 [place] open-ended catheter. A left retrograde pyelogram was shot which showed minimal hydronephrosis. A sensor wire was advanced into the kidney and confirmed fluoroscopically. A 6 [place] by 26 cm left ureteral stent was deployed with a good proximal coil in the renal pelvis and a good distal coil noted in the bladder. These were confirmed fluoroscopically and under direct visualization, respectively. The bladder was emptied and the scope was removed. This concluded the end of the case. All counts were correct at the end of the case. I was present, scrubbed, and actively participated for the entirety of the procedure. I attest to the content of the Intraoperative Record and any orders documented therein. Any exceptions are noted below.
--- NOTE | 2022-06-28 14:09 | Anesthesiology Progress Note ---
Date of Service June 28, 2022 Anesthesia Post Procedure Vital Signs Vital Signs: Temp Pulse Pulse Pulse Resp BP BP 06/28/22 14:05 79 14 124/70 06/28/22 13:55 67 15 109/69 06/28/22 13:45 71 16 103/69 06/28/22 13:38 36.7 C 77 12 120/67 06/28/22 12:31 36.7 C 73 18 130/82 06/28/22 08:31 36.8 C 81 18 126/70 06/27/22 21:20 36.6 C 75 18 128/66 06/27/22 20:48 73 16 136/73 06/27/22 19:28 83 16 125/71 06/27/22 18:28 84 16 139/85 06/27/22 17:32 36.6 C 75 18 149/87 H Pulse Ox O2 Del Method O2 Flow Rate 06/28/22 14:05 95 Room Air 06/28/22 13:55 99 Oxymask 2 06/28/22 13:45 99 Oxymask 6 06/28/22 13:38 99 Oxymask 6 06/28/22 12:31 96 Room Air 06/28/22 08:31 94 Room Air 06/27/22 21:20 96 Room Air 06/27/22 20:48 94 Room Air 06/27/22 19:28 96 Room Air 06/27/22 18:28 98 Room Air 06/27/22 17:32 98 Room Air Pain Intensity Left Flank: Pain Intensity: 8 Transfer of Care Handoff Completed per policy Notes Mental Status: alert / awake / arousable and participated in evaluation Patient Amnestic to Procedure: Yes Nausea / Vomiting: adequately controlled Pain: adequately controlled Airway Patency, RR, SpO2: stable & adequate BP & HR: stable & adequate Hydration State: stable & adequate Anesthetic Complications: no major complications apparent and Pt Satisfied with anesthetic care
--- NOTE | 2022-06-28 14:24 | Anesthesiology Progress Note ---
Date of Service June 28, 2022 Anesthesia Post Procedure Vital Signs Vital Signs: Temp Pulse Pulse Pulse Resp BP BP 06/28/22 14:05 79 14 124/70 06/28/22 13:55 67 15 109/69 06/28/22 13:45 71 16 103/69 06/28/22 13:38 98.1 F 77 12 120/67 06/28/22 12:31 98.1 F 73 18 130/82 06/28/22 08:31 98.2 F 81 18 126/70 06/27/22 21:20 97.9 F 75 18 128/66 06/27/22 20:48 73 16 136/73 06/27/22 19:28 83 16 125/71 06/27/22 18:28 84 16 139/85 06/27/22 17:32 97.9 F 75 18 149/87 H Pulse Ox O2 Del Method O2 Flow Rate 06/28/22 14:05 95 Room Air 06/28/22 13:55 99 Oxymask 2 06/28/22 13:45 99 Oxymask 6 06/28/22 13:38 99 Oxymask 6 06/28/22 12:31 96 Room Air 06/28/22 08:31 94 Room Air 06/27/22 21:20 96 Room Air 06/27/22 20:48 94 Room Air 06/27/22 19:28 96 Room Air 06/27/22 18:28 98 Room Air 06/27/22 17:32 98 Room Air Pain Intensity Left Flank: Pain Intensity: 8 Transfer of Care Handoff Completed per policy Notes Mental Status: alert / awake / arousable and participated in evaluation Patient Amnestic to Procedure: Yes Nausea / Vomiting: adequately controlled Pain: adequately controlled Airway Patency, RR, SpO2: stable & adequate BP & HR: stable & adequate Hydration State: stable & adequate Anesthetic Complications: no major complications apparent and Pt Satisfied with anesthetic care
--- NOTE | 2022-06-28 14:47 | Fluoroscopy Report ---
FL retrograde includes kub CLINICAL HISTORY: LT TECHNIQUE: 3 views were obtained with the C-arm in the OR with the above procedure. Total fluoroscopy time was 8 seconds. Comparison: Comparison is made to CT abdomen pelvis 06/27/2022 FINDINGS/IMPRESSION: Intraoperative images were obtained of left retrograde pyelogram and stent place ment. Please correlate with intraoperative fluoroscopy and operative report. ACT 112: Negative or not required by law. Electronically signed by: Gautam Vasquez M.D. 06/28/2022 2:46 PM
--- NOTE | 2022-06-28 16:24 | Discharge Summary ---
Date of Service June 28, 2022 Admission HPI Per Admitting Provider History obtained from patient and records. Medical history significant for urolithiasis, intermittent tobacco abuse. Last night, patient experienced achy left-sided flank pain reminiscent of kidney stone pain. No fever, no chills. Patient had nausea and emesis symptoms from pain. No gross hematuria. Patient seen at the ER early a.m. today. CT abdomen pelvis showed 6 mm proximal left ureteral calculus results in mild left hydronephrosis. Patient discharged home. Oxy IR and Flomax prescriptions. Instructed to follow-up with urologist outpatient. Intractable discomfort at home. Patient returned to ER. 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 Admission Exam Per Admitting Provider GENERAL: Comfortable, pleasant, obese, no respiratory distress SKIN: Normal color, warm HEENT: [place] palpebral conjunctivae, no ptosis, dry buccal mucosa NECK : Supple, no tenderness CHEST : CTA, no tenderness HEART : RRR, no obvious murmurs ABDOMEN: Some distention, nontender BACK : Minimal left flank tenderness EXTREMITIES : No LE swelling/tenderness, no other conspicuous deformities noted NEUROLOGIC : Coherent, no facial asymmetry, no other gross focality Principal Diagnosis Calculus of left ureter Discharge Exam General- No acute distress Head- atraumatic Eyes- PERRL, EOMI, ENT- oropharynx clear Neck- supple, no JVD Lungs- clear to auscultation Heart- regular rhythm; no murmur Abdomen- normal bowel sounds, soft, nontender Extremities- no calf tenderness Neuro- alert, oriented x 3; PERRL, EOMI; no facial palsy; no dysarthria Skin- warm & dry Discharge Data Allergies Allergy/AdvReac Type Severity Reaction Status Date / Time bee venom protein (honey bee) Allergy Severe Swelling Verified 06/27/22 19:24 of Lip/Tongue/Throat Consultations 06/27/22 19:34 ED Decision to Admit Stat 06/27/22 21:30 Consult Urology Routine Procedures Performed Operation Date: 06/28/22 07:00 Actual Procedures p Cystoscopy, Left Retrograde Pyelogram, Left Stent Insertion(Left) - Maycol delgado MD Ordered Studies 06/28/22 FL retrograde includes kub Routine Laboratory Results WBC 10.99 K/ul (4.8-10.8) H 06/28/22 07:16 RBC 4.38 M/uL (4.63-6.08) L 06/28/22 07:16 Hgb 13.3 g/dl (14.0-18.0) L 06/28/22 07:16 Hct 39.2 % (40.1-51.0) L 06/28/22 07:16 MCV 89.5 fL (80.0-100.0) 06/28/22 07:16 MCH 30.4 pg (25.0-34.0) 06/28/22 07:16 MCHC 33.9 g/dL (32.0-36.0) 06/28/22 07:16 RDW Std Deviation 42.3 fL (36.4-46.3) 06/28/22 07:16 RDW Coeff of Mikael 12.9 % (11.5-14.5) 06/28/22 07:16 Plt Count 196 K/uL (130-400) 06/28/22 07:16 MPV 11.7 fL (9.4-12.4) 06/28/22 07:16 Immature Gran % (Auto) 0.3 % 06/28/22 07:16 Neut % (Auto) 61.9 % 06/28/22 07:16 Lymph % (Auto) 24.1 % 06/28/22 07:16 [place] % (Auto) 10.1 % 06/28/22 07:16 Eos % (Auto) 3.1 % 06/28/22 07:16 Baso % (Auto) 0.5 % 06/28/22 07:16 Neut # (Auto) 6.81 K/uL (1.4-6.5) H 06/28/22 07:16 Lymph # (Auto) 2.65 K/uL (1.2-3.4) 06/28/22 07:16 [place] # (Auto) 1.11 K/uL (0.24-0.82) H 06/28/22 07:16 Eos # (Auto) 0.34 K/uL (0-0.50) 06/28/22 07:16 Baso # (Auto) 0.05 K/uL (0-0.2) 06/28/22 07:16 Immature Gran # (Auto) 0.03 K/uL (0.00-0.02) H 06/28/22 07:16 PT 10.6 Seconds (9.0-12.0) 06/28/22 07:16 INR 1.0 (0.9-1.1) 06/28/22 07:16 Sodium 138 mmol/L (136-145) 06/28/22 07:16 Potassium 3.9 mmol/L (3.5-5.1) 06/28/22 07:16 Chloride 108 mmol/L (98-107) H 06/28/22 07:16 Carbon Dioxide 25 mmol/L (21-32) 06/28/22 07:16 Anion Gap 5 (3-11) 06/28/22 07:16 BUN 10 mg/dl (6-23) 06/28/22 07:16 Creatinine 0.98 mg/dl (0.6-1.4) 06/28/22 07:16 Est Cr Clr Drug Dosing 127.5 ml/min 06/28/22 07:16 Est GFR ( Amer) 111.3 ml/min 06/28/22 07:16 Est GFR (Non-Af Amer) 96.1 ml/min 06/28/22 07:16 BUN/Creatinine Ratio 10.2 (-20) 06/28/22 07:16 Glucose 94 mg/dl (70-99(Fasting)) 06/28/22 07:16 Calcium 8.3 mg/dl (8.5-10.1) L 06/28/22 07:16 Total Bilirubin 0.6 mg/dl (0.2-1.0) 06/28/22 07:16 AST 37 U/L (13-39) 06/28/22 07:16 ALT 40 U/L (7-52) 06/28/22 07:16 Alkaline Phosphatase 70 U/L (34-104) 06/28/22 07:16 Total Protein 6.2 gm/dl (6.0-8.3) 06/28/22 07:16 Albumin 3.6 gm/dl (3.4-5.0) 06/28/22 07:16 Globulin 2.6 gm/dl (2.5-4.0) 06/28/22 07:16 Albumin/Globulin Ratio 1.4 (0.9-2) 06/28/22 07:16 Urine Color Yellow 06/27/22 18:25 Urine Appearance Clear (Clear) 06/27/22 18:25 Urine pH 6.0 (4.5-7.5) 06/27/22 18:25 Ur Specific [place] 1.009 (1.000-1.030) 06/27/22 18:25 Urine Protein Trace (Negative) H 06/27/22 18:25 Urine Glucose (UA) Negative (Negative) 06/27/22 18:25 Urine Ketones Negative (Negative) 06/27/22 18:25 Urine Blood 3+ (Negative) H 06/27/22 18:25 Urine Nitrite Negative (Negative) 06/27/22 18:25 Urine Bilirubin Negative (Negative) 06/27/22 18:25 Urine Urobilinogen Negative (Negative) 06/27/22 18:25 Ur Leukocyte Esterase Trace (Negative) H 06/27/22 18:25 Urine WBC (Auto) 1-5 /hpf (0-5) 06/27/22 18:25 Urine RBC (Auto) >30 /hpf (0-4) H 06/27/22 18:25 U Hyaline Cast (Auto) 1-5 /lpf (0-5) 06/27/22 18:25 U Epithel Cells (Auto) 0-5 /lpf (0-5) 06/27/22 18:25 Urine Bacteria (Auto) Negative (Negative) 06/27/22 18:25 SARS-CoV-2, RNA, NAAT NEGATIVE (NEGATIVE) 06/27/22 19:01 Impressions Retrograde Pyelogram 06/28/22 00:00 FL retrograde includes kub CLINICAL HISTORY: LT TECHNIQUE: 3 views were obtained with the C-arm in the OR with the above procedure. Total fluoroscopy time was 8 seconds. Comparison: Comparison is made to CT abdomen pelvis 06/27/2022 FINDINGS/IMPRESSION: Intraoperative images were obtained of left retrograde pyelogram and stent placement. Please correlate with intraoperative fluoroscopy and operative report. ACT 112: Negative or not required by law. Electronically signed by: Gautam Vasquez M.D. 06/28/2022 2:46 PM Hospital Course (1) Calculus of left ureter: Present on admission with worsening left-sided flank pain associated with nausea CT abd/pelvis showed 6 mm proximal left ureteral calculus results in mild left hydronephrosis. Continue pain control Urology on board S/P cystoscopy, left retrograde pyelogram and left ureteral stent placement. Continue Flomax and Oxybutynin Continue Ketorolac prn Follow up with your urology for stent removal and stone management DVT px SCDs Code status full code Total Time Total Time Spent Total Time Spent (In Minutes): 35 minutes Discharge Plan Discharge Items Patient Disposition: Home - Self-Care Reason For Visit: OBS UROPATHY Discharge Diagnosis: Calculus of left ureter Condition on Discharge: Good Activity: Resume your previous activity Non-emergency contact: Primary Care Provider and Urologist Call non-emergency contact if: you have any medication questions and your temperature is above 101 Follow-up/Referrals: Lake Hidalgo MD [Primary Care Provider] - Diet: Heart Healthy Addtl Attending Provider Instructions: Follow up with your primary care provider within 1 week Follow up with your urology for stent removal and stone management Take Tylenol and ibuprofen as needed for pain. For additional pain medication, you can call our office and we can prescribe narcotics. Continue taking Flomax as this can help with stent discomfort. Oxybutynin as needed, however this can cause dry mouth, constipation and difficulty urinating so only use when necessary. It is normal to have blood in his urine while the stent is in place. The more activity perform, the bloody or your urine will be. This is okay as long as you are able to urinate. You will be called regarding a follow-up appointment to determine stone treatment. Call the office earlier with fevers or uncontrolled pain. Pending Studies at Discharge: No Stand-Alone Forms: My Sajan, Smoking Cessation Medications and DC Order Prescriptions: New oxybutynin chloride [Ditropan XL] 5 mg tablet extended release 24hr 5 mg PO DAILY Qty: 20 0RF Rx Instructions: for stent discomfort ketorolac 10 mg Tablet 10 mg PO Q8H PRN (Reason: pain) Qty: 15 0RF Continued tamsulosin [Flomax] 0.4 mg capsule 0.4 mg PO DAILY Qty: 14 0RF ondansetron 4 mg tablet,disintegrating 4 mg PO Q6H PRN (Reason: nausea and vomiting) Qty: 12 0RF epinephrine 0.3 mg/0.3 mL auto-injector 0.3 mg IM UD PRN (Reason: Allergic Reaction) Discontinued oxycodone 5 mg tablet 5 mg PO Q4H PRN (Reason: pain) Qty: 12 0RF Rx Instructions: Initial Treatment Discharge Orders: Discharge Order (Routine); Ordered 06/28/22 Ordered By: Katie Barnes/Other Patient Handouts: Having a Ureteral Stent, Cystoscopy Admission Data Admit Date/Time: 06/27/22 20:00 Attending Provider: Katie Mcintosh Admit Provider: Peter Gallo Primary Care Provider: [place] Hidalgo Other Providers: Peter Gallo ; Maycol Britt Other Interventions: Discharge Summary Assessment (RN) Last Done: 06/28/22 16:25
[2022-06-28] MEDS ORDERED: KETOROLAC TROMETHAMINE 10 MG TABLET PO PRN (16:36)
== END 2022-06-28 17:05 | disposition home or self-care (01) | DRG 661 ==
LOC: ED 17:07 → 3N 20:00